=== PATIENT | male | born 1980 | race Caucasian/White ===

== ENCOUNTER 2019-11-04 12:06 | Emergency (ER) | payer OTHER, SELFPAY ==
[2019-11-04 12:11] VITALS: BP 102/70; PULSE 86; RESP 20; TEMP 36.8; O2SAT 97
--- NOTE | 2019-11-04 12:25 | ED.URI ---
HPI - URI/Sore Throat General Chief Complaint: Upper Respiratory Infection Stated Complaint: HEADACHE/FEVER/RUNNY NOSE/COUGH Time Seen by Provider: 11/04/19 12:33 Source: patient and RN notes reviewed Mode of arrival: ambulatory Limitations: no limitations History of Present Illness HPI Narrative: Pt is a 39 y/o male who is a nonsmoker/nondrinker that presents to the with c/o productive cough that started at 8PM last night. He reports associated myalgia, rhinorrhea, WEBSTER, fever 100F, sore throat, and ear pressure. [facility] complaint: cough Onset (ago): hour(s) (16) Consistency: constant Context: recent travel Associated symptoms: other (myalgia, rhinorrhea, WEBSTER, sore throat, fever 100F, and ear pressure) Related Data Home Medications Medication Instructions Recorded Confirmed No Home Medications 11/04/19 11/04/19 Allergies Allergy/AdvReac Type Severity Reaction Status Date / Time No Known Allergies Allergy Unknown Verified 11/04/19 12:10 Review of Systems Review of Systems: Narrative: General/Constitutional: No weight loss. Reports fever 100F, myalgia Eyes: N0: Redness,discharge Ears/Nose/Throat: No: Epistaxis,ear discharge. Reports rhinorrhea, sore throat, ear pressure. Respiratory: Denies: Hemoptysis. Reports cough Gastrointestinal: No Vomiting, Bleeding-rectal Skin: No Lumps, eruption Neurologic: No Focal Weakness,Sz. Reports WEBSTER Hematologic: Denies: Petechiae/Purpura Psychiatric: No: Suicida ideationl All Other Systems: Reviewed and Negative [facility] Past Medical History Medical History (Updated 11/04/19 @ 12:47 by Rafa Hdez MD) Collar bone fracture Seasonal allergies Surgical History Surgical History (Updated 11/04/19 @ 12:43 by Nicole Matias) No significant past surgical history Family History Family History (Updated 05/03/16 @ 23:21 by DOCTOR UNKNOWN) Mother Family history of rheumatoid arthritis Father Patient's father is in good health Social History Social History (Updated 11/04/19 @ 12:43 by Nicole Matias) Smoking status: Never smoker Alcohol intake: never Comments At time of signature, agree with nursing past medical, surgical, social and family history. There is no relevant family history pertinent to the presenting complaint Exam Narrative: Exam Narrative: General Appearance: Well appearing, Well nourished EYE: PERRLA, Conjunctiva clear Ears: Auditory canal normal, TM normal Nose: Rhinorrhea, Mucousal erythema Mouth/Throat: MM moist, Uvula midline, Pharyngeal erythema Neck: Supple, No adenopathy Respiratory: No respiratory distress, Breath sounds equal, Clear to auscultation Cardiovascular: RRR, No JVD Musculoskeletal: Non tender, Normal strength Skin: Warm, Dry Neurological: A&O x3, CN II-XII intact Psychiatric: Normal mood, Normal affect Course Vital Signs Vital signs: Vital Signs Temperature 98.3 F 11/04/19 12:11 Pulse Rate 86 11/04/19 12:11 Respiratory Rate 11/04/19 12:11 Blood Pressure 102/70 11/04/19 12:11 Pulse Oximetry 97 11/04/19 12:11 Temperature 98.3 F 11/04/19 12:11 Pulse Rate 86 11/04/19 12:11 Respiratory Rate 11/04/19 12:11 Blood Pressure 102/70 11/04/19 12:11 Pulse Oximetry 97 11/04/19 12:11 MDM - URI/Sore Throat Lab Data Labs: Influenza A Screen Negative Reference Range: Negative Influenza B Screen Negative Reference Range: Negative Discharge Plan Discharge Clinical Impression: Influenza-like illness Patient Disposition: Home, Self-Care Condition: Stable Instructions: Antibiotic Form, Acute Bronchitis (ED) Prescriptions: New azithromycin 250 mg tablet See Rx Instructions .ROUTE .COMPLEX Qty: 6 RF: 0 benzonatate [Tessalon Perles] 100 mg capsule 100 mg PO TID Qty: 20 RF: 1 codeine-guaifenesin 10-100 mg/5 mL liquid 7.5 m
== END 2019-11-04 12:47 | disposition home or self-care (01) ==
PROVIDERS: Emergency Provider Emergency Medicine; PCP Physician Assistant
DX: J06.9 Acute upper respiratory infection, unspecified (principal)
CPT/HCPCS: 87804; 99213; G0463

== ENCOUNTER 2020-08-09 10:45 | Emergency (ER) | payer OTHER, SELFPAY ==
--- NOTE | ~2020-08-09 | XR_ITS ---
EXAMINATION: XR chest 1V portable EXAM DATE: 08/09/2020 11:07 INDICATION: chest pain TECHNIQUE: Portable AP frontal chest x-ray was obtained. There is no prior study for comparison. FINDINGS: The lungs are clear. There are no pleural effusions. The cardiomediastinal silhouette is within normal limits. There is no pneumothorax suspected. The bones and soft tissues are unremarkab le. IMPRESSION: No acute cardiopulmonary findings. Reviewed, dictated and finalized at location B. PRODUCT MANAGER
--- NOTE | 2020-08-09 10:46 | ECG_ITS ---
Measurements Intervals [place] Rate: 84 P: 59 MN: 154 QRS: 38 QRSD: 87 T: 34 QT: 336 QTc: 398 Interpretive Statements SINUS RHYTHM WITH SINUS ARRHYTHMIA BASELINE ARTIFACT- I, II, III, AVR, AVL, AVF, V4-V6 NORMAL ECG Electronically Signed On 08-09-2020 10:58:52 TOY MAKER by Gerson Christina D.O.
[2020-08-09 10:50] VITALS: BP 129/85; PULSE 85; RESP 17; TEMP 36.6; O2SAT 100
[2020-08-09 10:56] VITALS: PULSE 82
--- NOTE | 2020-08-09 10:59 | ED.GENADULT ---
HPI - General Adult General Chief complaint: Chest Pain Stated complaint: chest pain Time Seen by Provider: 08/09/20 10:46 Source: patient Mode of arrival: ambulatory Limitations: no limitations History of Present Illness HPI narrative: Patient presents for evaluation of intermittent midsternal sharp chest pain that he noticed when he woke up this morning. Patient states that the last for less than a minute and resolves without any intervention. Patient denies radiation of pain, shortness of breath, diaphoresis, nausea, vomiting or any other symptoms associated with the pain. Patient denies ever having chest pain in the past. Patient denies close family history of heart attack. He denies hypertension, diabetes changes in medication, drug use. Patient states that he vapes nicotine as well as drinks 2 to 3 cups of coffee a day. Patient has not started any new medications recently. Patient states that he has been under a significant amount of stress recently but denies any other known causes to his symptoms. Patient not taking any medications to alleviate his symptoms. Patient denies any chest pain at this time. Related Data Home Medications Medication Instructions Recorded Confirmed No Home Medications 11/04/19 11/04/19 Allergies Allergy/AdvReac Type Severity Reaction Status Date / Time No Known Allergies Allergy Unknown Verified 08/09/20 10:58 Review of Systems Review of Systems: Narrative: CONSTITUTIONAL: Denies fever, chills, or sweats. EYES: Denies visual changes, redness, or discharge. ENT: Denies rhinorrhea, congestion, sore throat, or otalgia. CARDIOVASCULAR: Reports intermittent sharp chest pain-none currently, palpitations, or edema. RESPIRATORY: Denies cough or dyspnea. GASTROINTESTINAL: Denies abdominal pain, nausea, vomiting, or diarrhea. GENITOURINARY: Denies dysuria or hematuria. SKIN: Denies rash or itching. MUSCULOSKELETAL: Denies back pain, joint pain, or myalgia. NEUROLOGIC: Denies headache, numbness, dizziness, or weakness. PSYCHIATRIC: Denies anxiety or depression. [facility] Past Medical History Medical History (Updated 11/05/19 @ 00:00 by Abel Lund) Collar bone fracture Seasonal allergies Surgical History Surgical History (Updated 11/04/19 @ 12:43 by Nicole Matias) No significant past surgical history Family History Family History (Updated 05/03/16 @ 23:21 by DOCTOR UNKNOWN) Mother Family history of rheumatoid arthritis Father Patient's father is in good health Social History Social History (Updated 11/04/19 @ 12:43 by Nicole Matias) Smoking status: Never smoker Alcohol intake: never Exam Narrative: Exam Narrative: GENERAL: Well-appearing, well-nourished, and in no acute distress. Patient smiling and talking without discomfort or distress. HEAD: Normocephalic, atraumatic. EYES: PERRLA and EOMI. ENT: Nares clear, no rhinorrhea or epistaxis. Mucous membranes moist. Oropharynx without tonsillar hypertrophy exudate or other lesions. Bilateral TMs pearly mason nonbulging NECK: Supple. No adenopathy or masses. CHEST: Pain not reproducible with palpation. Clear to auscultation. No respiratory distress. No wheezes rales or rhonchi HEART: Regular rate and rhythm. No murmur heard. Normal peripheral pulses. EXTREMITIES: Normal range of motion. No edema. SKIN: Warm, dry, no rash. NEURO: No focal deficits. Alert and oriented x3. PSYCH: Normal mood and affect. Course Vital Signs Vital signs: Vital Signs Temperature 97.9 F 08/09/20 10:50 Pulse Rate 85 08/09/20 10:50 Respiratory Rate 17 08/09/20 10:50 Blood Pressure 129/85 08/09/20 10:50 Pulse Oximetry 100 08/09/20 10:50 Temperature 97.9 F 08/09/20 10:50 Pulse Rate 82 08/09/20 10:56 Respiratory Rate 17 08/09/20 10:50 Blood Pressure 129/85 08/09/20 10:50 Pulse Oximetry 100 08/09/20 10:50 Medical Decision Making Vital Signs Vital Signs: Vital Signs Temperature
--- NOTE | 2020-08-09 11:02 | ED.GENADULT ---
HPI - General Adult General Chief complaint: Chest Pain Stated complaint: chest pain Time Seen by Provider: 08/09/20 10:46 Source: patient Mode of arrival: ambulatory Limitations: no limitations History of Present Illness HPI narrative: Patient presents with chief complaint of intermittent sharp midsternal chest pain that resolves and under a minute without any intervention he noticed when he woke up this morning. The pain did not wake him from his sleep but he noticed it after he was already awake. Patient denies any radiation of pain or associated symptoms such as diaphoresis, shortness of breath, nausea, vomiting, changes in vision or hearing or weakness. Patient states he has not had chest pain in the past. Patient denies close family history of [place]. Patient states that he vapes however he denies any recreational drug usage. Patient has been under a lot of stress lately. Patient denies any chest pain or other symptoms at this time. Related Data Home Medications Medication Instructions Recorded Confirmed No Home Medications 11/04/19 11/04/19 Allergies Allergy/AdvReac Type Severity Reaction Status Date / Time No Known Allergies Allergy Unknown Verified 08/09/20 10:58 Review of Systems Review of Systems: Narrative: CONSTITUTIONAL: Denies fever, chills, or sweats. EYES: Denies visual changes, redness, or discharge. ENT: Denies rhinorrhea, congestion, sore throat, or otalgia. CARDIOVASCULAR: Reports intermittent chest pain-denies currently, palpitations, or edema. RESPIRATORY: Denies cough or dyspnea. GASTROINTESTINAL: Denies abdominal pain, nausea, vomiting, or diarrhea. GENITOURINARY: Denies dysuria or hematuria. SKIN: Denies rash or itching. MUSCULOSKELETAL: Denies back pain, joint pain, or myalgia. NEUROLOGIC: Denies headache, numbness, dizziness, or weakness. PSYCHIATRIC: Denies anxiety or depression. [facility] Past Medical History Medical History (Updated 08/09/20 @ 14:35 by Juliana Oquendo PA-C) Collar bone fracture Seasonal allergies Surgical History Surgical History (Updated 11/04/19 @ 12:43 by Nicole Matias) No significant past surgical history Family History Family History (Updated 05/03/16 @ 23:21 by DOCTOR UNKNOWN) Mother Family history of rheumatoid arthritis Father Patient's father is in good health Social History Social History (Updated 11/04/19 @ 12:43 by Nicole Ham Smoking status: Never smoker Alcohol intake: never Exam Narrative: Exam Narrative: GENERAL: Well-appearing, well-nourished, and in no acute distress. Patient does not appear to be in any discomfort at this time. Patient smiling and talking normally. HEAD: Normocephalic, atraumatic. EYES: PERRLA and EOMI. ENT: Nares clear, no rhinorrhea or epistaxis. Mucous membranes moist. Oropharynx without tonsillar hypertrophy exudate or other lesions. Bilateral TMs pearly mason nonbulging NECK: Supple. No adenopathy or masses. CHEST: Chest pain not reproducible with palpation. Clear to auscultation. No respiratory distress. No wheezes rales or rhonchi HEART: Regular rate and rhythm. No murmur heard. Normal peripheral pulses. ABDOMEN: Soft, nontender, nondistended, normal active bowel sounds. EXTREMITIES: Normal range of motion. No edema. SKIN: Warm, dry, no rash. NEURO: No focal deficits. Alert and oriented x3. PSYCH: Normal mood and affect. Course Course Emergency Course: Patient continues to receive emergency department without pain. His vitals are still stable. Patient denies any discomfort or distress. Patient will be waiting for 3-hour troponin to make sure there has not been a change. Patient instructed to inform us if chest pain returns for repeat EKG. Vital Signs Vital signs: Vital Signs Temperature 97.9 F 08/09/20 10:50 Pulse Rate 85 08/09/20 10:50 Respiratory Rate 17 08/09/20 10:50 Blood Pressure 129/85 08/09/20 10:50 Pulse Oximetry 100 08/09/20 10:50 Temperature 9
[2020-08-09 11:08] LABS: Basophils Absolute Auto 0.1 K/mm3 (0.0-0.1); Basophils Percent Auto 1.6 % (0.2-1.2); Eosinophils Absolute Auto 0.1 K/mm3 (0-0.3); Eosinophils Percent Auto 1.6 % (0-4.4); Hematocrit 44.3 % (42.0-52.0); Hemoglobin 15.5 g/dL (14.0-18.0); Immature Granulocyte Absolute 0.02 K/mm3 (0.00-0.031); Immature Granulocyte Percent A 0.3 % (0-0.5); Lymphocytes Absolute Auto 2.56 K/mm3 (0.9-3.2); Lymphocytes Percent Auto 41.8 % (18.3-44.2); Mean Corpuscular Hemoglobin 32.3 pg (26-34); Mean Corpuscular Volume 92.3 fl (80-100); Mean Platelet Volume 9.8 fl (7.4-10.4); Monocytes Absolute Auto 0.6 K/mm3 (0.1-0.6); Neutrophils Absolute Auto 2.8 K/mm3 (1.3-6.7); Neutrophils Percent Auto 45.7 % (45.5-73.1); Platelet Count Result 364 k/mm3 (150-375); Red Cell Distribution Width 11.9 % (11.5-14.5); White Blood Count 6.1 K/mm3 (4.5-10.0)
[2020-08-09] MEDS: ASPIRIN 81 MG CHEWABLE TABLET 324 MG PO (11:13)
[2020-08-09 11:20] LABS: Alanine Aminotransferase 18 U/L (4-50); Alkaline Phosphatase 53 U/L (38-126); Anion Gap 12 mmol/L (8-16); Aspartate Amino Transferase 24 U/L (17-59); Bilirubin,Total 0.6 mg/dL (0.2-1.3); Blood Urea Nitrogen 13 mg/dL (9-20); Carbon Dioxide 28 mmol/L (22-30); Chloride 100 mmol/L (98-107); Estimated CRCL calculation 114 ml/min; Estimated Glomerular Filt Rate > 60; Glucose 94 mg/dL (75-110); Potassium 4.3 mmol/L (3.4-5.0); Sodium 140 mmol/L (137-145)
[2020-08-09 11:26] LABS: INR 0.9; Prothrombin Time 12.8 Seconds (11.1-14.7)
[2020-08-09 11:27] LABS: Partial Thromboplastin Time 25.8 SECONDS (22.3-36.8)
[2020-08-09 11:31] LABS: Troponin I < 0.012 ng/mL (0.000-0.034)
[2020-08-09 11:47] VITALS: BP 124/81; PULSE 71; RESP 12; O2SAT 98
[2020-08-09 11:58] LABS: Amphetamine Screen Urine Negative (Negative); Barbiturate Screen Urine Negative (Negative); Benzodiazepines Screen Urine Negative (Negative); Cannabinoid Screen Urine Negative (Negative); Cocaine Screen Urine Negative (Negative); Methadone Screen Urine Negative (Negative); Opiate Screen Urine Negative (Negative); Phencyclidine Screen Urine Negative (Negative)
[2020-08-09 13:06] VITALS: BP 140/74; PULSE 80; RESP 12; O2SAT 97
[2020-08-09 14:21] LABS: Troponin I < 0.012 ng/mL (0.000-0.034)
[2020-08-09 14:35] VITALS: BP 132/76; PULSE 68; RESP 18; O2SAT 98
== END 2020-08-09 14:52 | disposition home or self-care (01) ==
PROVIDERS: Physician Assistant; Emergency Provider Emergency Medicine; PCP Physician Assistant
DX: R07.2 Precordial pain (principal); F17.290 Nicotine dependence, other tobacco product, uncomplicated
CPT/HCPCS: 36415; 71045; 80053; 80307; 84484; 85025; 85610; 85730; 93005; 99284; A9270

== ENCOUNTER 2020-10-13 12:24 | Outpatient (CLI) | payer OTHER, SELFPAY ==
--- NOTE | 2020-10-13 | ECHO_ITS ---
Patient Info Name: Jere Leggett Age: 40 years : 1980 Gender: Male Ht: 72 in Wt: 180 lbs BSA: 2.04 m2 HR: 73 bpm BP: 124 / 81 mmHg Technical Quality: Good Exam Date: 10/13/2020 1:25 PM Exam Location: [facility] Patient Status: Outpatient Admit Date: 10/13/2020 Staff Ordering Physician: Marnie, Marga CHRISTIAN Utility Operator Yarn: Karlos Parsons, CHRISTINA, RT Attending Provider: Marnie, Marga CHRISTIAN Exam Type: CA echo doppler color flow Study Info Indications R07.9 - Chest pain, unspecified Complete two-dimensional, color flow and Doppler transthoracic echocardiogram is performed. Strain analysis performed. Summary 1. Complete two-dimensional, color flow and Doppler transthoracic echocardiogram is performed. 2. Left ventricular chamber dimension is normal. 3. Left ventricular systolic function is normal, estimated at 60-65%. 4. The left ventricular diastolic function is normal. 5. E/e' 3 is not elevated. 6. Global longitudinal strain is mildly abnormal at -16.0%. 7. There is trace tricuspid valve regurgitation. Left Ventricle E/e' 3 is not elevated. Global longitudinal strain is mildly abnormal at -16.0%. Left ventricular chamber dimension is normal. Left ventricular systolic function is normal, estimated at 60-65%. The left ventricular diastolic function is normal. Right Ventricle Right ventricular chamber dimension is normal. Right ventricular systolic function is normal. Left Atria Left atrial chamber dimension is normal. Right Atria Right atrial chamber dimension is normal. Aortic Valve The aortic valve is trileaflet. There is no aortic valve stenosis. There is no aortic valve regurgitation. Pulmonic Valve There is no pulmonic regurgitation. Mitral Valve There is no mitral valve stenosis. There is no mitral valve regurgitation. Tricuspid Valve RVSP is not calculated due to an inadequate TR jet. There is trace tricuspid valve regurgitation. Pericardium/Pleural There is no pericardial effusion. Inferior Vena Cava Normal inferior vena cava with >50% collapse upon inspiration consistent with normal right atrial pressure, 5 mmHg. Aorta The aortic root size at the sinus of Valsalva is normal. Left Ventricular Outflow Tract Name Value Normal LVOT 2D LVOT Diameter 2.0 cm LVOT Doppler LVOT Peak Gradient 3 mmHg LVOT Mean Gradient 2 mmHg LVOT VTI 16 cm LVOT VTI/AV VTI Ratio 1.0 LVOT Stroke Volume 52 ml LVOT CO 3.7 l/min LVOT CI 1.8 l/min/m2 Mitral Valve Name Value Normal MV Doppler MV Decel Jay 231 cm/s2 MV PHT 69 ms
== END 2020-10-13 12:25 | disposition home or self-care (01) ==
LOC: ANHCARD 12:26
PROVIDERS: PCP Physician Assistant; Visit Provider Physician Assistant
DX: R07.89 Other chest pain (principal)
CPT/HCPCS: 93306

== ENCOUNTER → 2022-09-20 14:35 | Outpatient (CLI) | payer OTHER, SELFPAY ==
--- NOTE | ~2022-09-20 | XR_ITS ---
EXAMINATION: XR abdomen/kub 1V INDICATION: Left flank pain TECHNIQUE: Supine views of the abdomen were obtained on 2 radiographs. COMPARISON: 03/01/2014 FINDINGS: The bowel gas pattern is normal. There is a phlebolith of the left pelvis. No urolithiasis is identified. The visualized lung bases are clear. There is mild osteoarthritis of the hips. IMPRESSION: 1. No radiographic correlate for the patient's symptoms. Reviewed, dictated and finalized at location A. STITCH SLEEVE SETTER
--- NOTE | ~2022-09-20 | XR_ITS ---
EXAMINATION: XR thoracic spine 3V DATE: 09/20/2022 15:11 INDICATION: Cough and back pain TECHNIQUE: AP, lateral and lateral swimmer's views of the thoracic spine were obtained. COMPARISON: 12/01/2017 FINDINGS: Bone alignment is normal. There is no fracture. Again noted is mild chronic anterior wedgin g of T11, likely physiologic. The intervertebral disc space heights are maintained. IMPRESSION: 1. No acute osseous abnormality. Reviewed, dictated and finalized at location A. DENTIAL INSTALLER
--- NOTE | ~2022-09-20 | XR_ITS ---
EXAMINATION: XR chest 2V DATE: 09/20/2022 15:11 INDICATION: Cough TECHNIQUE: Frontal and lateral views of the chest are obtained COMPARISON: 08/09/2020 FINDINGS: The lungs are free of acute opacities. No pleural effusion or pneumothorax. The cardiomedia stinal silhouette is normal. The visualized bones and soft tissues are unremarkable. IMPRESSION: 1. No acute cardiopulmonary abnormality. Reviewed, dictated and finalized at location A. SIFICATIONS OFFICER CC/CM
== END ==
PROVIDERS: PCP Physician Assistant; Visit Provider Physician Assistant
DX: R10.9 Unspecified abdominal pain (principal)
CPT/HCPCS: 71046; 72072; 74018

== ENCOUNTER 2023-12-19 11:05 | Outpatient (CLI) | payer OTHER, SELFPAY ==
--- NOTE | ~2023-12-19 | MMUS_ITS ---
EXAMINATION: MM diagnostic harmony BI w lux, US breast RT limited HISTORY: Right breast lump TECHNIQUE: ML, MLO and CC 3-D tomosynthesis images of both breasts were performed and synthetic 2-D i mages were generated. CAD analysis was submitted and interpreted. High resolution subareolar right br east ultrasound was performed. COMPARISON: None BREAST PARENCHYMAL COMPOSITION: There are scattered areas of fibroglandular density. FINDINGS: MAMMOGRAPHIC FINDINGS: There is mild right and minimal left gynecomastia. No suspicious mass lesion, architectural distortion, malignant cascade, skin thickening or retraction of either breast is detected. ULTRASOUND: Right gynecomastia is demonstrated. No suspicious mass or shadowing is detected. IMPRESSION: Bilateral gynecomastia, mild on the right, minimal on the left; no mammographic or sonographic eviden ce of malignancy BI-RADS Category 2: Benign finding(s). Reviewed, dictated and finalized at location A. IMPRESSION: Bilateral gynecomastia, mild on the right, minimal on the left; no mammographic or sonographic evidence of malignancy BI-RADS Category 2: Benign finding(s).
== END 2023-12-19 11:06 | disposition home or self-care (01) ==
PROVIDERS: PCP Physician Assistant; Visit Provider Physician Assistant
DX: N63.10 Unspecified lump in the right breast, unspecified quadrant (principal); N62 Hypertrophy of breast; R92.8 Other abnormal and inconclusive findings on diagnostic imaging of breast
CPT/HCPCS: 76642; 77062; 77066; G0279